=== PATIENT | male | born 1985 | race Native Hawaiian/Other Pacific Islander ===

== ENCOUNTER → 2017-03-09 | Outpatient (CLI) | payer OTHER ==
--- NOTE | 2017-03-13 08:58 | RSPPFT ---
DATE OF PROCEDURE: 03/09/17 COMMENTS: Spirometry with FVC of 3.8 predicted 4.7, FEV1 of 3.5 predicted 3.7, FEV1/FVC ratio 91% predicted 80%. Lung volumes are basically within the predicted range. DLCO is 62% of predicted. There is a mild reduction in the DLCO. IMPRESSION: There is a mild reduction in the DLCO. Otherwise, patient has flow values, spirometry and lung volumes are within the predicted range.
== END ==
LOC: HRSP 07:51
PROVIDERS: ATTEND Internal Medicine Pulmonary Disease
DX: G47.30 Sleep apnea, unspecified (principal)
CPT/HCPCS: 94060; 94620; 94726; 94729